=== PATIENT | male | born 1940 | race Two or more races ===

== ENCOUNTER 2018-09-20 02:35 | Emergency (ER) | payer OTHER ==
[~2018-09-20] VITALS: Ht 182.9 cm; Wt 83.9 kg
[2018-09-20] MEDS ORDERED: OXYMETAZOLINE HCL NASAL SPRAY 30 ML BOTTLE NS ONE ×2 (02:55→03:00)
--- NOTE | 2018-09-20 03:02 | NUR ---
DR ORTIZ INSERTED COTTON BALLS SOAKED IN AFRIN INTO PT'S BILATERAL NARES.
--- NOTE | 2018-09-20 03:39 | NUR ---
DR ORTIZ IS AT THE BEDSIDE INSERTING A RHINO ROCKET.
--- NOTE | 2018-09-20 04:17 | NUR ---
DR ORTIZ IS AT THE BEDSIDE.
[2018-09-20 04:28] VITALS: BP 155/71
--- NOTE | 2018-09-20 04:30 | NUR ---
Patient discharged to home in stable condition. Written and verbal after care instructions given. Patient verbalizes understanding of instruction AND RX. PT AMBULATED OUT WITH A SLIGHT LIMP. PT'S VSS. NO BLEEDING NOTED. NAD NOTED.
== END 2018-09-20 04:31 | disposition home or self-care (01) ==
LOC: ER 02:36
DX: R04.0 Epistaxis (principal); I10 Essential (primary) hypertension; E78.00 Pure hypercholesterolemia, unspecified; Z90.89 Acquired absence of other organs; Z96.652 Presence of left artificial knee joint
CPT/HCPCS: 30901; 99283; A4606; Z7610

== ENCOUNTER 2018-09-20 11:04 | Emergency (ER) | payer MEDICARE, OTHER ==
[~2018-09-20] VITALS: Ht 177.8 cm; Wt 81.2 kg
[2018-09-20 11:04] VITALS: BP 129/72
== END 2018-09-20 11:54 | disposition home or self-care (01) ==
LOC: ER 11:12
DX: S00.31XA Abrasion of nose, initial encounter (principal); R04.0 Epistaxis; I10 Essential (primary) hypertension; E78.00 Pure hypercholesterolemia, unspecified; Z90.89 Acquired absence of other organs; Z96.652 Presence of left artificial knee joint; W18.39XA Other fall on same level, initial encounter; Y93.89 Activity, other specified; Y92.89 Other specified places as the place of occurrence of the external cause; Y99.8 Other external cause status
CPT/HCPCS: 99281; A4606; Z7502; Z7610